=== PATIENT | female | born 1935 | race Caucasian/White ===

== ENCOUNTER → 2023-05-03 | Outpatient (CLI) | payer MEDICARE, OTHER ==
--- NOTE | 2023-05-04 12:26 | MR ---
EXAMINATION TYPE: MR angio head wo con DATE OF EXAM: 05/03/2023 COMPARISON: No priors or outside exams available for comparison. The film room checked with Quinton Samantha. HISTORY: 87-year-old female I67.1. Dizziness, hx aneurysm. TECHNIQUE: High-resolution 3-D [id number] imaging of the north fork of [place]. No IV contrast. Rotati onal 3-D reconstructions generated on a dedicated independent workstation. FINDINGS: Skull base artifacts limiting assessment at the V3/V4 junction of the bilateral vertebral a rteries. Otherwise, vertebral and basilar arteries appear patent. There is a conical 2 mm area of dilatation at the origin of the left superior cerebellar artery suspe cted to represent an infundibulum rather than a small aneurysm. There is anatomic variation of persistent origin left posterior cerebral artery. The bilateral internal carotid arteries are patent. Slightly tortuous cavernous segments of the inter nal carotid arteries with a 3 mm saccular aneurysm projecting laterally on the right. Remainder of the bilateral internal carotid arteries are patent. IMPRESSION: 1. Unable to locate any outside priors. 2. Persistent origin left [employer] 3. 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 Reassess at follow-up. 4. 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
== END | disposition home or self-care (01) ==
LOC: RADMRIMAIN 09:20
PROVIDERS: ATTEND Family Medicine
DX: I67.1 Cerebral aneurysm, nonruptured (principal)
CPT/HCPCS: 70544